=== PATIENT | male | born 1935 | race Caucasian/White ===

== ENCOUNTER 2022-06-09 08:07 | Outpatient (CLI) | payer MEDICARE, OTHER, SELFPAY ==
--- NOTE | ~2022-06-09 | NM_ITS ---
EXAMINATION: NM bone scan whole body DATE: 06/09/2022 13:06 INDICATION: Prostate cancer, metastatic to bone. TECHNIQUE: 26.4 mCi Tc-99m HDP was administered intravenously. Delayed whole-body scintigrams were o btained. COMPARISON: CT of the pelvis dated 08/25/2019. There are no more recent imaging studies at our institu tion. 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 There is also a photopenic defect at the left knee consistent with t otal knee arthroplasty. Expected small amount of increased uptake underlying the plateau of the tibia l component of the arthroplasty. There are multiple foci of relatively intense bone uptake most promi nent along the mid to distal right humeral diaphysis and at multiple bilateral ribs. A few these cyst s along the anterior left sixth-ninth ribs are incidentally linear pattern consistent with likely fra ctures however the remainder . More randomly distributed and are more suspicious for metastatic disea se. Additional suspicious lesions are seen in the region of the sternum and manubrium and more subtly on the medial metadiaphyseal region of the distal left femur. Foci of scattered increased uptake marcial ng the spine and prominent increased uptake at the left shoulder could be either degenerative or meta static in etiology. IMPRESSION: 1. Scattered foci of relatively intense uptake including at the right humerus, multiple ribs, the eduarda rnum, manubrium and left shoulder which are concerning for metastatic disease. Recommend correlation with CT of the chest which could be performed with inclusion of both the left shoulder and right cisco karley. Reviewed, dictated and finalized at location A. IMPRESSION: 1. Scattered foci of relatively intense uptake including at the right humerus, multiple ribs, the sternum, manubrium and left shoulder which are concerning fo r metastatic disease. Recommend correlation with CT of the chest which could be performed with inclusion of both the left shoulder and right humerus.
== END 2022-06-09 08:08 | disposition home or self-care (01) ==
LOC: ANHIMG 08:11
PROVIDERS: PCP Internal Medicine; Visit Provider Urology
DX: C61 Malignant neoplasm of prostate (principal)
CPT/HCPCS: 78306; A9561